=== PATIENT | male | born 1980 | race Caucasian/White ===

== ENCOUNTER 2022-04-08 13:10 | Emergency (ER) | payer BC | END 2022-04-08 16:50 | disposition home or self-care (01) | LOC: JD.ED 13:10 | DX: R41.3 Other amnesia (principal) | CPT/HCPCS: 36415; 80053; 80143; 80179; 80307; 84443; 85025; 99282; 99284 ==

== ENCOUNTER 2022-04-09 08:58 | Emergency (ER) | payer BC ==
[2022-04-09] MEDS ORDERED: LORazepam 1 MG Tab PO ONE (12:47)
[2022-04-09] MEDS ORDERED: OLANZapine 10 MG Vial IM ONE (13:52)
== END 2022-04-09 14:30 | disposition home or self-care (01) ==
LOC: JD.ED 08:58
DX: R44.0 Auditory hallucinations (principal); R46.1 Bizarre personal appearance; R45.1 Restlessness and agitation; Z20.822 Contact with and (suspected) exposure to COVID-19
CPT/HCPCS: 36415; 70450; 70450-26; 80053; 80306; 80307; 85025; 96372; 99284; 99285; A9270-GY; J3490; U0002